=== PATIENT | male | born 2000 | race Caucasian/White ===

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

== ENCOUNTER 2021-10-04 17:41 | Emergency (ER) | payer MEDICAID ==
[2021-10-04] MEDS ORDERED: Sodium Chloride 0.9% 1,000 ML IV STA (18:12)
[2021-10-04] MEDS ORDERED: Sodium Chloride 0.9% 10 ML Syringe FLUSH PRN (18:12)
[2021-10-04 19:34] LABS: ACETAMINOPHEN 0 ug/mL (10-30)
[2021-10-04 21:33] VITALS: BP 130/77; PULSE 97
== END 2021-10-04 21:30 | disposition home or self-care (01) ==
LOC: JD.ED 17:41
DX: F19.10 Other psychoactive substance abuse, uncomplicated (principal); J45.909 Unspecified asthma, uncomplicated; Z72.0 Tobacco use
CPT/HCPCS: 36415; 80053; 80143; 80179; 80307; 84443; 85007; 85027; 93005; 99284; J7030